=== PATIENT | female | born 1955 | race Caucasian/White ===

== ENCOUNTER 2021-07-27 12:38 | Emergency (ER) | payer OTHER ==
[~2021-07-27] VITALS: Ht 167.6 cm; Wt 104.3 kg
--- NOTE | 2021-07-27 13:35 | NUR ---
PT IS IN ROOM#2A. DR RAINEY EVALUATED THE PT.
--- NOTE | 2021-07-27 14:02 | NUR ---
PT WAS D/C'd TO HOME. D/C INSTRUCTIONS GIVEN TO THE PT BY DR RAINEY.
[2021-07-27 14:03] VITALS: BP 130/78
== END 2021-07-27 14:04 | disposition home or self-care (01) ==
LOC: ER 12:38
DX: T18.9XXA Foreign body of alimentary tract, part unspecified, initial encounter (principal); X58.XXXA Exposure to other specified factors, initial encounter; Y92.89 Other specified places as the place of occurrence of the external cause; E11.9 Type 2 diabetes mellitus without complications; M10.9 Gout, unspecified
CPT/HCPCS: A4663